=== PATIENT | male | born 1970 | race Caucasian/White ===

== ENCOUNTER 2016-11-06 14:09 | Inpatient (IN) | payer SELFPAY ==
[~2016-11-06] VITALS: Ht 180.3 cm; Wt 76.8 kg
--- NOTE | ~2016-11-06 | DS ---
ADMIT: 11/06/2016 RM/LOC: 526 [facility] MR#: [id number] [facility]#: [id number] [id number] [place], [place] [address] CANDY TORREZ [address] [place] [address] Discharge Summary SEX: M AGE: 46 : 1970 ADMISSION DATE: 11/06/2016 DISCHARGE DATE: 11/11/2016 SERVICE: Neurosurgery. REASON FOR ADMISSION: 1. Thoracic diskitis. 2. Osteomyelitis. 3. Paraspinous muscular abscess. CONSULTS: 1. John Mcarthur MD, with Internal Medicine. 2. Shanelle Carter MD, with Infectious Disease. PROCEDURES: Image guided T11 and T12 disc and bone biopsy. HOSPITAL COURSE: Mr. Torrez is a very pleasant gentleman whom was out looking at houses, slipped on some carpet and twisted his back and fell down the steps. He then had severe pain in his back. He presented to the emergency room. An x-ray was obtained, which revealed a possible compression fracture of T11, a CT scan of his thoracic spine was then ordered, which revealed a possible diskitis. An MRI was then obtained which revealed diskitis, osteomyelitis at the T11-T12 level with associated abscess formation within the disc space at T11-T12 with paraspinal soft tissue extension of the abscess. The sepsis bundle was initiated. He was admitted to the Med/Surg floor for monitoring and care. Dr. Mcarthur with Internal Medicine was consulted for co-management of his comorbidities. Dr. Carter with Infectious Disease was consulted for the osteomyelitis and diskitis. Hospital day #2, he was awake, his vital signs were stable. He was having significant pain in his back. He was moving all extremities x4 with 5/5 strength. He worked with Physical Therapy and Occupational Therapy and tolerated it very well. Infectious Disease checked his urine, which was within normal limits, an HIV, hep C antibody and hep B surface antigen which were all negative. He was continued on current antibiotics. He was taken to the Interventional Radiology, and at T11-T12 bone and disc biopsy was performed. He tolerated the procedure very well. Hospital day #3, he continued to have severe back pain. He denied numbness, tingling, or weakness in his lower limbs. His blood cultures were growing Staph epidermidis in 1 of 2 bottles. He continued on the morphine FURNITURE REMOVALIST'S ASSISTANT for pain control. The Gram stain of the bone and the tissue from the biopsy both came back no bacteria. The culture of the bone came back negative. The culture of the tissue came back growing Staphylococcus epidermidis. Hospital day #4, his morphine FURNITURE REMOVALIST'S ASSISTANT was DC'd, and he was started on oral Valium and Percocet. He was awake and alert and afebrile. He continued with no numbness or weakness to his lower extremities. He continued on vancomycin. He continued to work with Physical Therapy and tolerated this well. Hospital day #5, he was sitting up in the chair, he was complaining of severe back pain. His pain medication was adjusted. His vancomycin was changed the oxacillin. Hospital day #6, a PICC line was placed. He was awake and alert, he was moving all extremities x4 with 5/5 ADMIT: 11/06/2016 RM/LOC: 526 [facility] MR#: [id number] [address] [place] [address] [facility] [place] [address] Discharge Summary SEX: M AGE: 46 : 1970 strength. He continued to have back pain, but was requesting discharge home. Infectious Disease felt he was safe for discharge with home IV antibiotics with some Home Health. DISCHARGE CONDITION: Good. DISCHARGE MEDICATIONS: 1. Oxacillin 2 g IV q.4 hours. 2. Levothyroxine 100 mcg daily. 3. Adderall 20 mg daily. 4. Gabapentin 800 mg t.i.d. 5. Pantoprazole 40 mg daily. 6. Farxiga 10 mg daily. 7. Simvastatin 40 mg q. p.m. 8. Glyburide 5 mg daily. 9. Metformin 500 mg b.i.d. 10.Colace 100 mg p.o. b.i.d. 11.Oxy IR 15 mg 1 p.o. q.3 hours p.r.n. pain. 12.Valium 10 mg 1 p.o. q.8 hours p.r.n. muscle spasm/pain. DISCHARGE INSTRUCTIONS: (Per Dr. Garrison): He can have an ADA 2000 calorie diet. He should be up and moving as much as possible. He should utilize fall precautions. He should have an MRI of his thoracic spine with and without fernando in six weeks. He is to continue his IV antibiotics. He will have Home Health to assist with this. He will call with any questions or concerns including neurological worsening, signs or symptoms of infection, or any other issues. FOLLOWUP: He will follow up with Sushma in clinic in 2 weeks. He will follow up with Dr. Carter in 4-6 weeks. He will follow up with Dr. Garrison in clinic in 6 weeks. DISPOSITION: He was discharged home. Total [id number] time for the discharge planning and care coordination was 30 minutes. Sushma Pedro APRN / Farrukh Garrison MD / gaurav JOB #: [id number] CC: Farrukh Garrison MD, Attending Physician Farrukh Garrison MD, Family Physician
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
[2016-11-12] MEDS ORDERED: [UNRECOGNIZED DRUG - OTHER] PO (14:31)
[2016-11-12] MEDS ORDERED: PROTONIX40 MG PO (14:33)
[2016-11-12] MEDS ORDERED: LEVOTHYROXINE100 MCG PO (14:33)
[2016-11-12] MEDS ORDERED: NEURONTIN800 MG PO (14:33)
[2016-11-12] MEDS ORDERED: ZOCOR DPS40 MG PO (14:34)
[2016-11-12] MEDS ORDERED: GLUCOPHAGE-DPS500 MG PO (14:34)
[2016-11-12] MEDS ORDERED: FARXIGA10 MG PO (14:34)
[2016-11-12] MEDS ORDERED: OXY IR DPS5 MG PO (14:37)
[2016-11-12] MEDS ORDERED: PROSTAPHLIN DPS2 GM IV (14:37)
[2016-11-12] MEDS ORDERED: VALIUM-DPS10 MG PO (14:38)
[2016-11-12] MEDS ORDERED: COLACE-DPS100 MG PO (14:38)
--- NOTE | 2016-11-13 15:21 | HP ---
ADMIT: 11/06/2016 RM/LOC: 526 [facility] MR#: [id number] 2620 [facility] [address] [place], [place] [address] CANDY TORREZ [address] [place] [address] Pre-OP History and Physical SEX: M AGE: 46 : 1970 Corrected: 11/07/2016 1425 brody 11/13/2016 1046 brody DATE OF SERVICE: REASON FOR ADMIT: Thoracic diskitis, osteomyelitis, and abscess, -12. HISTORY OF PRESENT ILLNESS: Mr. Torrez is a 46-year-old gentleman. He did not really have much in the way of back pain until he had a trip and a fall earlier today. He does not complain of bowel or bladder incontinence or weakness in his legs. He just has severe excruciating, incapacitating pain in his back. PAST MEDICAL HISTORY: He is a bit uncertain. I got most of that via speaker phone conversation with his soon to be ex- he reports. He has hypothyroidism, diabetes mellitus, hyperlipidemia, and GERD. ALLERGIES: NONE KNOWN. MEDICATIONS: 1. Farxiga. 2. Glyburide. 3. Simvastatin. 4. Pantoprazole. 5. Synthroid. He is not on any anticoagulants that he is aware of or what his estranged is aware of. SOCIAL HISTORY: He chews tobacco and drinks. He does not utilize drugs of abuse. FAMILY HISTORY: No history of neurosurgical disease. REVIEW OF SYSTEMS: Complete review of systems was obtained and pertinent positives annotated in the history of present illness. PHYSICAL EXAMINATION: VITAL SIGNS: 129/66, 120 beats, 14 respirations, 96.9 degrees. Laboratory analysis pertinently reveals a sedimentation rate of 75 and a white count of 10.5. GENERAL: He is a healthy appearing gentleman, who appears to be in exquisite pain. He is tremulous and not really diaphoretic. HEENT: He has an atraumatic head. No scleral icterus. Clear oropharynx with the exception of the pouch of chewing tobacco. Also some scattered around throughout his teeth. NECK: Supple. Nontender. MUSCULOSKELETAL: He has full range of motion with his extremities. He has extreme pain in the thoracolumbar junction with any extensive movement. 2+ radial pulses. LUNGS: Normal respiratory excursion. ADMIT: 11/06/2016 RM/LOC: 526 [facility] MR#: [id number] [address] [address] [facility] [address] Pre-OP History and Physical SEX: M AGE: 46 : 1970 ABDOMEN: Nontender abdomen. NEUROLOGICAL EXAMINATION: MENTAL STATUS: He is awake, alert, a bit agitated because of his pain. He has no aphasia. His affect is appropriate. Thought content is normal. CRANIAL NERVES: Cranial nerves II through XII are individually tested and found to be intact without deficit. MOTOR EXAM: Motor exam reveals 5/5 strength in bilateral upper and lower extremities at the shoulder abductors, elbow flexors, elbow extensors, wrist flexors, wrist extensors, interosseous muscles, personnel and payroll technician strength, hip flexors, hip abductors, hip adductors, knee flexors, knee extensors, ankle dorsiflexors, ankle plantar flexors, and extensors of the hallucis bilaterally. Sensation intact to light touch in upper and lower extremities. Deep tendon reflexes 3/4 globally, although he is very tremulous and irritated. He has no Babinski or crossing of the adductors. No Iva or brachioradial inversion. CEREBELLAR: Not tested. GAIT: Not tested. ASSESSMENT AND PLAN: Mr. Torrez is a very pleasant gentleman with thoracic 11-12 diskitis, osteomyelitis, and paraspinous muscular abscess. I have put a call in for Infectious Disease. We will start him on some antibiotics down here and then request a biopsy in the morning. Lactate and sepsis bundle has been initiated. Farrukh Garrison MD/ caleb JOB #: [id number] CC: Farrukh Garrison, Attending Physician Farrukh Garrison, Family Physician Corrected: 11/07/2016 1425 brody 11/13/2016 1046 brody
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
--- NOTE | 2016-11-23 08:19 | ER ---
ADMIT: 11/06/2016 RM/LOC: 526 [facility] MR#: [id number] [address] [facility] [address] [place], [place] [address] CANDY TORREZ [address] [place] [address] Emergency Room Report SEX: M AGE: 46 : 1970 DATE: 11/06/2016 ADDENDUM: CHIEF COMPLAINT: Back pain. HISTORY OF PRESENT ILLNESS: This is a 46-year-old male, who was actually visiting from [place]. He was looking at a house and he fell down the stairs. He said he fell down about 8 steps, but he does not think he made contact with the steps as more of a twisting action. He says he has excruciating pain in his back. It is hard for him to walk because of pain. COURSE IN THE EMERGENCY ROOM: Initially, an x-ray was done of his L-spine. With L-spine view, I could visualize T11, it appeared to be a compression fracture. At that time, I ordered a CT of his T-spine, which looked like diskitis versus carcinoma in that area over-read by Dr. Tinoco. At that time, ordered an MRI, and it appears to be more of a diskitis. Labs were ordered then including the sepsis protocol. Overall findings, his white count was elevated slightly at 10.5, hemoglobin 12.6, and platelets 268. Lactic acid is 1.9. Blood cultures x2 have been drawn. Procalcitonin is less than 0.05. PT and INR are normal. CMP is normal except for chloride of 111, glucose 177, albumin low at 3.0. His GFR low at 67. CK elevated at 566. His CRP elevated at 310. His MB, relative index, and troponin are normal. Sedimentation rate is elevated at 75. His EKG showed sinus rhythm at a rate of 85, over-read by Dr. Bryant. Dr. Garrison was contacted. He came into the ER to see the patient and has admitted. Dr. Mcarthur is consulting. Dr. Garrison had spoke with him. CLINICAL IMPRESSION: Osteomyelitis of T11 to T12. CARLITA Gomez / Dudley Redmond MD / modl JOB #: [id number] CC: Farrukh Garrison MD, Attending Physician Farrukh Garrison MD, Family Physician
[2016-12-04] MEDS ORDERED: NEURONTIN800 MG PO (17:15)
[2016-12-04] MEDS ORDERED: SYNTHROID DPS0.1 MG PO (17:16)
[2016-12-04] MEDS ORDERED: OXYCONTIN15 MG PO (17:16)
[2016-12-04] MEDS ORDERED: ZOCOR DPS40 MG PO (17:16)
[2016-12-04] MEDS ORDERED: FARXIGA10 MG PO (17:16)
[2016-12-04] MEDS ORDERED: FENOFIBRATE160 MG PO (17:17)
[2016-12-04] MEDS ORDERED: MICRONASE DPS5 MG PO (17:17)
[2016-12-04] MEDS ORDERED: OXACILLIN SODIUM2 GM IV (17:18)
== END 2016-11-11 18:00 | disposition home health service (06) | DRG 478 ==
LOC: ER 14:09 → 5MS 19:00
PROVIDERS: ADMIT Neurological Surgery
PROC: 0RB93ZX Excision of Thoracic Vertebral Disc, Percutaneous Approach, Diagnostic (ICD-10-PCS; principal; 2016-11-07)
PROC: 0PB43ZX Excision of Thoracic Vertebra, Percutaneous Approach, Diagnostic (ICD-10-PCS; principal; 2016-11-07)
PROC: 02HV33Z Insertion of Infusion Device into Superior Vena Cava, Percutaneous Approach (ICD-10-PCS; 2016-11-11)
DX: M46.24 Osteomyelitis of vertebra, thoracic region (principal); M60.08 Infective myositis, other site; R78.81 Bacteremia; B95.7 Other staphylococcus as the cause of diseases classified elsewhere; E03.9 Hypothyroidism, unspecified; E11.9 Type 2 diabetes mellitus without complications; E78.5 Hyperlipidemia, unspecified; M46.44 Discitis, unspecified, thoracic region; F17.220 Nicotine dependence, chewing tobacco, uncomplicated; F17.210 Nicotine dependence, cigarettes, uncomplicated; K21.9 Gastro-esophageal reflux disease without esophagitis; Z79.84 Long term (current) use of oral hypoglycemic drugs

== ENCOUNTER 2016-11-22 10:29 | Emergency (ER) | payer SELFPAY ==
--- NOTE | ~2016-11-22 | ER ---
ADMIT: 11/22/2016 RM/LOC: ER [facility] MR#: [id number] 2620 [facility] [address] [place], [place] [address] CANDY TORREZ [address] [place] [address] Emergency Room Report SEX: M AGE: 46 : 1970 DATE: 11/22/2016 The patient is a 46-year-old with chronic issues with his back. He has complained now of right upper arm PICC line pain when he was infusing his oxacillin antibiotic. He came to the emergency room because he thinks he may have his PICC line infected. He was infusing up to recently. He had a biopsy on his back due to acute pain that he had and Dr. Carter put him on oxacillin. He is a smoker. PHYSICAL EXAMINATION: GENERAL: He looks very sedated but stated he did not take his medications today. VITAL SIGNS: His blood pressure 145/80 with a heart rate of 101, respirations 16, temp is 98.9, and O2 sats 93%. HEENT: Pinpoint pupils. He is wearing a neck brace. CARDIAC: He is tachycardic. On physical examination, these are the findings. LABORATORY DATA: Done as a kind of screen SIRS. We did do a sepsis protocol as his lactic acid went 2.1. Hemoglobin 11.7 with a normal white count of 5.7, hematocrit is 35.6. His chemistry 3.1, glucose 287, creatinine is 1.5. Lactic 2.1. CK 160, MB 1.4, and troponin 0. Glucose in the urine 1000. Albumin is 2.9 and GFR 56. PICC line, no complications. X-ray done to check for placement. CLINICAL IMPRESSION: Hyperglycemia, pain control, infection in thoracic spine with antibiotic therapy, and PICC line problems. I contacted Dr. Mcarthur. No admission at this time. He will be treated on outpatient basis. He is advised to start a new antibiotic bag as probably the one that he was using had some issues that caused burning, but there is no redness in the PICC line site. He is afebrile. I will write for pain medication and he has an appointment to see Dr. Mcarthur on December 04 at 1 o'clock as a followup from city call and to establish care. CARLITA Cabrera / Dudley Redmond MD / caleb JOB #: [id number] CC: Dudley Redmond MD, Attending Physician
[~2016-11-22 10:29] MED LIST: COLACE-DPS100 MG PO; FARXIGA10 MG PO; GLUCOPHAGE-DPS500 MG PO; LEVOTHYROXINE100 MCG PO; NEURONTIN800 MG PO; OXY IR DPS5 MG PO; PROSTAPHLIN DPS2 GM IV; PROTONIX40 MG PO; VALIUM-DPS10 MG PO; ZOCOR DPS40 MG PO; [UNRECOGNIZED DRUG - OTHER] PO
--- NOTE | 2016-11-30 17:54 | ER ---
ADMIT: 11/22/2016 RM/LOC: ER [facility] MR#: [id number] 2620 [facility] [address] [place], [place] [address] CANDY TORREZ [address] [place] [address] Emergency Room Report SEX: M AGE: 46 : 1970 DATE: 11/22/2016 ADDENDUM: OCCURRENCE: This is a second addendum. At 1646 hours, I received phone call from [facility] stating that Mr. Torrez has received a prescription of count of 43 oxycodone yesterday from Sushma Pedro, neurologist office, and at this point, I have given him 20, so he could get medication until he was able to see Dr. Mcarthur on Friday. I asked pharmacist not to fill the prescription and take it from him, that I was not aware that he had received that many oxycodone since the day before. As I hung up the phone, the patient called to try to remind me that he had told me about the script from the neurologist's office and I told him I had tried to help him out by giving him enough medication to last him until he could see his doctor, but I do not like to be lied to and by not disclosing and keeping quiet, he did lie. So this note is an occurrence for Mr. Candy Torrez. He ended up with no more Mims. I believe he has a count of 28 at home and he will have to make it last until he sees Dr. Mcarthur on December 04. CARLITA Cabrera / Dudley Redmond MD / adenl JOB #: [id number] CC: Dudley Redmond MD, Attending Physician
[2016-12-04] MEDS ORDERED: NEURONTIN800 MG PO (17:15)
[2016-12-04] MEDS ORDERED: FARXIGA10 MG PO (17:16)
[2016-12-04] MEDS ORDERED: SYNTHROID DPS0.1 MG PO (17:16)
[2016-12-04] MEDS ORDERED: OXYCONTIN15 MG PO (17:16)
[2016-12-04] MEDS ORDERED: ZOCOR DPS40 MG PO (17:16)
[2016-12-04] MEDS ORDERED: FENOFIBRATE160 MG PO (17:17)
[2016-12-04] MEDS ORDERED: MICRONASE DPS5 MG PO (17:17)
[2016-12-04] MEDS ORDERED: OXACILLIN SODIUM2 GM IV (17:18)
== END 2016-11-22 16:10 | disposition home or self-care (01) ==
LOC: ER 10:29
DX: T82.848A Pain due to vascular prosthetic devices, implants and grafts, initial encounter (principal); M79.621 Pain in right upper arm; E11.65 Type 2 diabetes mellitus with hyperglycemia; E03.9 Hypothyroidism, unspecified; E78.5 Hyperlipidemia, unspecified; F17.210 Nicotine dependence, cigarettes, uncomplicated; Z90.89 Acquired absence of other organs; Z79.899 Other long term (current) drug therapy

== ENCOUNTER 2016-11-22 21:42 | Emergency (ER) | payer SELFPAY ==
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
[2016-12-04] MEDS ORDERED: NEURONTIN800 MG PO (17:15)
[2016-12-04] MEDS ORDERED: OXYCONTIN15 MG PO (17:16)
[2016-12-04] MEDS ORDERED: FARXIGA10 MG PO (17:16)
[2016-12-04] MEDS ORDERED: SYNTHROID DPS0.1 MG PO (17:16)
[2016-12-04] MEDS ORDERED: ZOCOR DPS40 MG PO (17:16)
[2016-12-04] MEDS ORDERED: MICRONASE DPS5 MG PO (17:17)
[2016-12-04] MEDS ORDERED: FENOFIBRATE160 MG PO (17:17)
[2016-12-04] MEDS ORDERED: OXACILLIN SODIUM2 GM IV (17:18)
== END 2016-11-23 00:55 | disposition home or self-care (01) ==
LOC: ER 21:42
DX: T82.898A Other specified complication of vascular prosthetic devices, implants and grafts, initial encounter (principal); G89.29 Other chronic pain; F17.210 Nicotine dependence, cigarettes, uncomplicated; E11.9 Type 2 diabetes mellitus without complications; Z90.89 Acquired absence of other organs; Z79.899 Other long term (current) drug therapy

== ENCOUNTER 2016-11-25 20:21 | Emergency (ER) | payer SELFPAY ==
--- NOTE | 2016-11-26 05:24 | ER ---
ADMIT: 11/25/2016 RM/LOC: ER [facility] MR#: [id number] 26[address] [facility] [id number] [place], [place] [address] CANDY TORREZ [address] [place] [address] Emergency Room Report SEX: M AGE: 46 : 1970 DATE: 11/25/2016 The patient is a 46-year-old male with complex history of spontaneous T11-12 osteomyelitis discitis with abscess status post IR biopsy and chronic oxacillin infusion till December 19. States that his last OxyContin IR was at 6 this morning. The patient received Toradol, Dilaudid, and Reglan here with instructions to increase his OxyContin every 6 hours as needed. Follow up Farrukh Garrison as scheduled this week. Jhonny Leiva MD/ caleb JOB #: [id number] CC: Jhonny Leiva MD, Attending Physician Farrukh Garrison MD
[2016-12-04] MEDS ORDERED: NEURONTIN800 MG PO (17:15)
[2016-12-04] MEDS ORDERED: OXYCONTIN15 MG PO (17:16)
[2016-12-04] MEDS ORDERED: ZOCOR DPS40 MG PO (17:16)
[2016-12-04] MEDS ORDERED: SYNTHROID DPS0.1 MG PO (17:16)
[2016-12-04] MEDS ORDERED: FARXIGA10 MG PO (17:16)
[2016-12-04] MEDS ORDERED: FENOFIBRATE160 MG PO (17:17)
[2016-12-04] MEDS ORDERED: MICRONASE DPS5 MG PO (17:17)
[2016-12-04] MEDS ORDERED: OXACILLIN SODIUM2 GM IV (17:18)
== END 2016-11-25 21:55 | disposition home or self-care (01) ==
LOC: ER 20:21
DX: M46.24 Osteomyelitis of vertebra, thoracic region (principal); M46.44 Discitis, unspecified, thoracic region; E11.69 Type 2 diabetes mellitus with other specified complication; F17.210 Nicotine dependence, cigarettes, uncomplicated; E78.5 Hyperlipidemia, unspecified; E03.9 Hypothyroidism, unspecified; Z79.84 Long term (current) use of oral hypoglycemic drugs; Z79.899 Other long term (current) drug therapy

== ENCOUNTER 2016-11-29 15:35 | Emergency (ER) | payer SELFPAY ==
--- NOTE | 2016-12-03 19:20 | ER ---
ADMIT: 11/29/2016 RM/LOC: ER [facility] MR#: [id number] [id number] [place], [place] [address] CANDY TORREZ [address] [place] [address] Emergency Room Report SEX: M AGE: 46 : 1970 DATE: 11/29/2016 ADDENDUM: CHIEF COMPLAINT: PICC line. HPI: This is a 46-year-old male, who has a PICC line for 24-hour antibiotics. The PICC line was slightly coming out, so came here to be evaluated. Chest x- ray was done, the PICC line is in place per Dr. Bryant over reading. I am sending him home having him follow up with Dr. Carter on Friday for PICC line replacement. CLINICAL IMPRESSION: Chronic spine infection with IV antibiotics. CARLITA Gomez / Gt Bryant MD / caleb JOB #: [id number] CC: Da Murphy MD, Attending Physician FAMILY PHYSICIAN, Family Physician
[2016-12-04] MEDS ORDERED: NEURONTIN800 MG PO (17:15)
[2016-12-04] MEDS ORDERED: FARXIGA10 MG PO (17:16)
[2016-12-04] MEDS ORDERED: SYNTHROID DPS0.1 MG PO (17:16)
[2016-12-04] MEDS ORDERED: OXYCONTIN15 MG PO (17:16)
[2016-12-04] MEDS ORDERED: ZOCOR DPS40 MG PO (17:16)
[2016-12-04] MEDS ORDERED: FENOFIBRATE160 MG PO (17:17)
[2016-12-04] MEDS ORDERED: MICRONASE DPS5 MG PO (17:17)
[2016-12-04] MEDS ORDERED: OXACILLIN SODIUM2 GM IV (17:18)
== END 2016-11-29 19:52 | disposition home or self-care (01) ==
LOC: ER 15:35
DX: M46.30 Infection of intervertebral disc (pyogenic), site unspecified (principal)

== ENCOUNTER 2016-12-01 14:34 | Inpatient (IN) | payer SELFPAY ==
[~2016-12-01] VITALS: Ht 180.3 cm; Wt 83.7 kg
--- NOTE | ~2016-12-01 | ECH ---
Transthoracic Echocardiography Report (TTE) Demographics Patient Name CANDY TORREZ Date of Study 12/02/2016 CRYSTAL Patient Number [id number] Visit Number [id number] Date of 1970 Room Number 401 Gender Male Number Age 46 year(s) Referring Ritchie Marie Spray Painter Helper [facility] Physician Physician Interpreting Elba Davila Track Rider Physician MD Supervising Ordering King Sarthak Zepeda MD, MD/MLP Physician Nurse Stress Chiropractic Practice Manager Conclusions Summary Technically adequate exam. Mild septal left ventricular hypertrophy. Mild mitral regurgitation by color Doppler. Mild tricuspid regurgitation by color Doppler. Trivial pulmonic valve regurgitation by color Doppler. Procedure Type of Study TTE procedure:Echo Complete SF. Procedure Date Date: 12/02/2016 Start: 11:11 AM Technical Quality: Adequate visualization Indications:Bradycardia. Appropriate Use Criteria: 9 Height: 71 inches Weight: 183 pounds BSA: 2.03 m Rhythm: Within normal limits HR: 43 bpm BP: 125/69 mmHg M-Mode/2D Measurements LV Diastolic Dimension: 4.56 cm LV Systolic Dimension: 2.15 cm LV Septum Diastolic: 1.2 cm LV PW Diastolic: 1.02 cm AO Root Dimension: 2.24 cm Cardiac Output: 2.79 l/min LA Dimension: 3.87 cm Cardiac Index: 1.37 l/min*m RV Diastolic Dimension: 3.27 cm LA volume index: 30 ml/m LVOT: 1.87 cm LVOT VTI: 23.63 cm RV Base: 3.77 cm LV Stroke volume: 64.87 ml RV Mid: 2.87 cm LV Stroke volume index: 31.96 ml/m RV Length: 6.55 cm TAPSE: 3.2 cm TDI-S': 13 cm/s Doppler Measurements AV Peak Velocity: 1.14 m/s MV Peak E-Wave: 0.91 m/s AV Peak Gradient: 5.2 mmHg MV Peak A-Wave: 0.45 m/s AV Mean Gradient: 3 mmHg MV E/A Ratio: 2.01 LVOT Peak Velocity: 0.9 m/s MV P1/2t: 57.1 msec AV Area (Continuity):2.35 cm MV Deceleration Time: 203.1 msec TR Velocity:2 m/s MV Area (PHT): 3.85 cm TR Gradient:16.07 mmHg PV Peak Velocity: 0.78 m/s Estimated RAP:3 mmHg PV Peak Gradient: 2.4 mmHg Estimated RVSP: 19 mmHg Estimated PASP: 19.07 mmHg E' Septal Velocity: 0.16 m/s E' Lateral Velocity: 0.13 m/s RA Area: 15.81 cm Findings Left Ventricle The left ventricle is normal in size . Mild septal left ventricular hypertrophy. Diastolic assessment reveals normal relaxation. Right Ventricle Normal right ventricle structure and function. Left Atrium Normal left atrial size. Right Atrium Normal right atrial size. Mitral Valve Normal mitral valve structure and function. Mild mitral regurgitation by color Doppler. Aortic Valve Normal aortic valve structure and function. Tricuspid Valve Normal tricuspid valve structure and function. Mild tricuspid regurgitation by color Doppler. Pulmonic Valve Normal pulmonic valve structure and function. Trivial pulmonic valve regurgitation by color Doppler. Pericardial Effusion No evidence of pericardial effusion. Miscellaneous Visualized portions of the aortic root and ascending aorta appear normal in size. Pleural Effusion No evidence of pleural effusion. Contractility Score LV regional wall motion:(0-Non visualized 1-Normal 2-Hypokinesis 3-Akinesis 4-Dyskinesis 5-Aneurysm) Signature
[2016-12-04] MEDS ORDERED: NEURONTIN800 MG PO (17:15)
[2016-12-04] MEDS ORDERED: ZOCOR DPS40 MG PO (17:16)
[2016-12-04] MEDS ORDERED: OXYCONTIN15 MG PO (17:16)
[2016-12-04] MEDS ORDERED: FARXIGA10 MG PO (17:16)
[2016-12-04] MEDS ORDERED: SYNTHROID DPS0.1 MG PO (17:16)
[2016-12-04] MEDS ORDERED: FENOFIBRATE160 MG PO (17:17)
[2016-12-04] MEDS ORDERED: MICRONASE DPS5 MG PO (17:17)
[2016-12-04] MEDS ORDERED: OXACILLIN SODIUM2 GM IV (17:18)
--- NOTE | 2016-12-11 08:24 | HP ---
ADMIT: 12/01/2016 RM/LOC: 401 [facility] MR#: [id number] 26[address] [facility] [address] [place], [place] [address] CANDY TORREZ [address] [place] [address] History and Physical SEX: M AGE: 46 : 1970 DATE OF SERVICE: CHIEF COMPLAINT: Back pain. HISTORY OF PRESENT ILLNESS: Mr. 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 He has been following with Neurosurgery, Dr. Farrukh Garrison as well as Infectious Disease, Dr. Carter regarding this. Because of this infection, he has had persistent back pain. He has presented numerous times to the Emergency Department both here in [place] and apparently also in the neighboring community of [place], [place] requesting narcotic pain medications. He presented again this afternoon to the Emergency Department with increased back pain and during evaluation, he was found to have profound bradycardia with heart rates in the 40s. He was given a dose of atropine and his pulse did improve into the 70s. The patient denies any symptoms. No dizziness. No chest pain. No syncope. No shortness of breath. He also denies any history of prior cardiac disease. He does have hypothyroidism and it is unclear how compliant he is with his thyroid medication. He also is diabetic and again it is unclear if he has been compliant with his medications. When asked if he has a primary physician, he says he saw Dr. Ríos but that they "did not get along." He is not otherwise established primary care. PAST MEDICAL HISTORY: 1. Chronic back pain secondary to thoracic diskitis, osteomyelitis, and abscess, on chronic IV antibiotics. 2. Hypothyroidism. 3. Hyperlipidemia. 4. Diabetes mellitus type 2. 5. Apparent drug seeking behavior. MEDICATIONS: The patient is unable to list the current medications. Nursing staff did obtain a list from an old chart from earlier this year, which included the following medications: 1. Gabapentin 600 mg. 2. Oxycodone 10 mg. 3. Levothyroxine, unknown dose. 4. Diazepam 5 mg. 5. Simvastatin 40 mg. 6. Fenofibrate 150 mg. 7. Glimepiride, unknown dose. 8. Valtrex, unknown dose. 9. Prednisone 20 mg at that time. 10.Cyclobenzaprine 10 mg. 11.Pantoprazole, unknown dose. 12.Farxiga 10 mg. 13.Adderall, unknown dose. ALLERGIES: NO KNOWN MEDICAL ALLERGIES. ADMIT: 12/01/2016 RM/LOC: 401 [facility] MR#: [id number] [address] [address] [place] [address] History and Physical SEX: M AGE: 46 : 1970 FAMILY HISTORY: Noncontributory. SOCIAL HISTORY: The patient currently lives independently in [place] and is unemployed. 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 Originally, he is from [place]. He had been living in [place] for about the past one year. He smokes "a little." He denies need for nicotine replacement therapy. He denies alcohol use. He denies illicit drug use. REVIEW OF SYSTEMS: As per HPI. Others reviewed and negative. PHYSICAL EXAMINATION: VITAL SIGNS: Temperature 97.4, heart rate 43, respiratory rate 16, blood pressure 129/63, and oxygen saturation 97%. GENERAL: The patient is lying on the bed with his back to me and the sheath pulled up over his face. HEENT: From what I can tell, is unremarkable. HEART: Bradycardic, but regular. No murmurs. LUNGS: Clear to auscultation bilaterally. No crackles or wheezes. ABDOMEN: Soft, nontender, and nondistended. EXTREMITIES: Warm and dry. No edema. NEUROLOGIC: Cranial nerves were grossly intact. At this time, I did not appreciate any focal neurologic deficits, but assessment was difficult secondary to the patient's cooperation. LABORATORY DATA: Please see electronic record for full details, but of note, his blood sugar was elevated at 322. Creatinine was normal at 1.1. Troponin was less than 0.015. White blood cell count 6.6. TSH within normal limits at 1.13. IMAGING: Chest x-ray from 2 days prior showed PICC line in stable position. EKG shows sinus bradycardia with a rate of 42 at that time. ASSESSMENT AND PLAN: 1. Sinus bradycardia. He is currently asymptomatic. With no previous cardiac history, suspect this is due to some medication or potentially would like to rule out underlying cardiac disease. Cardiology has been consulted and appreciate recommendations they may have. 2. Type 2 diabetes mellitus. This is uncontrolled given hyperglycemia at this time. We will obtain an A1c. We will have sliding scale insulin. We will plan to restart home medications once doses are verified. 3. History of osteomyelitis of the thoracic spine as well as diskitis of the thoracic spine. We will continue with his plan for IV antibiotics by his Infectious Disease and Neurosurgical specialist. We will consult them ADMIT: 12/01/2016 RM/LOC: 401 [facility] MR#: [id number] [address] [place] [id number] [facility] [address] [place] [address] History and Physical SEX: M AGE: 46 : 1970 should his admission be prolonged. 4. Chronic pain with narcotic dependency and suspicion for narcotic abuse. We will continue with his home medications. At this point, I see no need for IV pain medications or increased regimen. 5. Hypothyroidism. His TSH is currently at goal. We will verify his home medication. 6. Noncompliance. 7. Tobacco abuse. Cessation recommended. 8. Hyperlipidemia. We will continue his home statin. DISPOSITION: Once Cardiology has evaluated the patient, his bradycardia is stable. We will plan for discharge. Chiquis Dugan MD/ caleb JOB #: [id number] CC: Chiquis Dugan, Attending Physician Chiquis Dugan, Family Physician
--- NOTE | 2016-12-15 15:51 | ER ---
ADMIT: 12/01/2016 RM/LOC: 401 [facility] MR#: [id number] 26[address] [facility] [address] [place], [place] [address] CANDY TORREZ [address] [place] [address] Emergency Room Report SEX: M AGE: 46 : 1970 DATE: 12/01/2016 HISTORY OF PRESENT ILLNESS: A 46-year-old who comes to the emergency department with complaints of chronic back pain. He had been diagnosed several weeks ago with osteomyelitis and diskitis. He sees Dr. Farrukh Garrison's for his spine problems as well as Dr. Carter. He says "he was told to come here for strong pain medicine per Dr. Garrison." It was noted while he was here that he was profoundly bradycardic with rates down into the upper 30s. However, his blood pressure was never an issue. Because of his profound bradycardia, electrolytes were obtained results, which were unremarkable. Cardiac markers were likewise unremarkable. An EKG showed a sinus bradycardia and then throughout his stay here in the emergency department, he said he was in [facility] last night where they attempt him to admit him for bradycardia, however, he became combative with the staff and was escorted out by the police. PHYSICAL EXAMINATION: GENERAL: A 46-year-old gentleman, in no acute distress. He does appear to be under the influence of narcotics and he was mildly obtunded and slow to answer. HEENT: Normocephalic. LUNGS: Clear to auscultation. CARDIOVASCULAR: No murmur. Bradycardia is noted. ABDOMEN: Soft. EXTREMITIES: Unremarkable. EMERGENCY DEPARTMENT COURSE: The patient was subsequently admitted for workup of his bradycardia. He was given 0.5 mg of atropine in the emergency department, which brought his rate from 39 to the mid 70s for pulse. Femi Wang MD/ caleb JOB #: [id number] CC: Chiquis Dugan MD, Attending Physician Chiquis Dugan MD, Family Physician
--- NOTE | 2016-12-18 09:41 | CO ---
ADMIT: 12/01/2016 RM/LOC: 401 [facility] MR#: [id number] [address] [place], [place] [address] CANDY TORREZ [address] [place] [address] Consultation SEX: M AGE: 46 : 1970 DATE OF CONSULTATION: 12/02/2016 ATTENDING PHYSICIAN: Chiquis Dugan CONSULTING PHYSICIAN: Shanelle Carter MD REASON FOR CONSULTATION: Antibiotic management. Thank you, Dr. Dugan, for the consult and involving me in this patient's care. HISTORY OF PRESENT ILLNESS: Mr. Torrez is a 46-year-old man, who was admitted in the hospital in October with complaint of back pain and found to have T10-T11 diskitis with Staphylococcus epidermidis infection. He also had bacteremia at that time. He was started on oxacillin 2 g every 4 hours and discharged on continuous infusion. He has finished more than three weeks of IV antibiotics through right arm PICC line. He has had multiple admissions to the ER since last 1 week for back pain and during his last admission, he was noted to have his heart rate in the low 40s. He is otherwise asymptomatic. He is currently being evaluated by Cardiology. He has uncontrolled diabetes mellitus. At this time, he continues to complain of chronic back pain. PAST MEDICAL HISTORY: 1. T10-T11 diskitis and osteomyelitis. 2. Hypothyroidism. 3. Uncontrolled diabetes mellitus. 4. Hyperlipidemia. 5. Questionable drug-seeking behavior. ALLERGIES: NO KNOWN DRUG ALLERGIES. CURRENT MEDICATIONS: 1. Neurontin. 2. Zocor. 3. Insulin sliding scale. SOCIAL HISTORY: He lives alone. Smokes cigarettes every day. Drinks alcohol occasionally, and denies any current recreational drug use. FAMILY HISTORY: No history of neurosurgical disease. REVIEW OF SYSTEMS: A 10-point review of systems negative except as mentioned in HPI. PHYSICAL EXAMINATION: VITAL SIGNS: Current temperature 96.3, heart rate 34, respirations 18, blood pressure 135/67, and 95% on room air. GENERAL: No acute distress. HEENT: Head is normocephalic and atraumatic. Extraocular movements intact. CHEST: Clear to auscultation bilaterally. ADMIT: 12/01/2016 RM/LOC: 401 [facility] MR#: [id number] 26[address] [facility] [address] [place], [place] [address] [facility] [address] [place] [address] Consultation SEX: M AGE: 46 : 1970 CARDIOVASCULAR: S1 and S2 heard. Regular rate and rhythm, bradycardia. ABDOMEN: Soft and nontender. Active bowel sounds. EXTREMITIES: No peripheral edema. PSYCH: Normal affect. Memory intact. SKIN: No rash noted on exposed skin. LYMPH: No palpable anterior/posterior cervical or supraclavicular lymphadenopathy. DATA REVIEW: CBC today shows white count of 6.2, hemoglobin 11.8, and platelets of 314. BMP shows sodium of 146, potassium 3.3, creatinine of 0.8. Hemoglobin A1c is 9. ASSESSMENT AND PLAN: 1. T10-T11 diskitis secondary to Staphylococcus epidermidis infection. Continue IV oxacillin 2 g every 4 hours until 12/19/2016 to complete at least six weeks of IV antibiotics. He will again probably need oral antibiotics after that. 2. Uncontrolled diabetes mellitus. 3. Bradycardia. I will repeat blood cultures at this time and if negative, then okay to put pacemaker if needed. Thank you for the consult. I will continue to follow the patient. Shanelle Carter MD/ caleb JOB #: [id number] CC: hCiquis Dugan, Attending Physician Chiquis Dugan, Family Physician
--- NOTE | 2016-12-19 08:26 | DS ---
ADMIT: 12/01/2016 RM/LOC: 401 [facility] MR#: [id number] 26[address] [facility] [address] [place], [place] [address] CANDY TORREZ [address] [place] [address] General Discharge Summary SEX: M AGE: 46 : 1970 ADMISSION DATE: 12/01/2016 DISCHARGE DATE: 12/03/2016 DISCHARGE DIAGNOSES: 1. Acute sinus bradycardia. 2. Uncontrolled type 2 diabetes mellitus. 3. History of thoracic diskitis and osteomyelitis. 4. Chronic back pain with narcotic dependency and suspicion for narcotic abuse. 5. Chronic hypothyroidism. 6. Noncompliance. 7. Tobacco abuse. 8. Mild hypokalemia, asymptomatic. CONSULTS: 1. Cardiology, Dr. Amin. 2. Infectious Disease, Dr. Carter. PROCEDURES: None. REASON FOR ADMISSION: The patient was admitted through the Emergency Department as a [facility] patient after presenting with increased back pain and found to have a significant bradycardia. Please see H and P for full details. HOSPITAL COURSE: The patient was admitted to telemetry monitoring for his severe bradycardia. In the Emergency Department, he had been given atropine which did improve his heart rates from the 40s to 70s. Cardiac enzymes were obtained and were unremarkable for a total of three sets. Cardiology was consulted at the time of admission as well. He is a known type 2 diabetic, therefore, was started on sliding scale insulin. He also has chronic back pain related to thoracic diskitis. His home pain medication regimen and antibiotics were continued. His Infectious Disease physician was consulted as she had planned outpatient followup around the time of his admission. She recommended continuing IV oxacillin and completing six weeks worth of IV antibiotics. Cardiology recommended an echocardiogram, which was performed and without obvious abnormality. Cardiology believed that his bradycardia was likely due to his pain medications. Given no symptoms and unremarkable cardiac evaluation, he was given a 48-Holter monitor and felt stable for discharge. DISCHARGE MEDICATIONS: 1. Farxiga 10 mg daily. 2. Micronase 5 mg daily. 3. Neurontin 800 mg t.i.d. 4. Synthroid 100 mcg daily. 5. TriCor 145 mg daily. 6. Zocor 40 mg daily. 7. Oxacillin 2 g IV q.4 hours to complete a total of six weeks course. ADMIT: 12/01/2016 RM/LOC: 401 [facility] MR#: [id number] 26[address] [facility] [address] [place], [place] [address] [place] [address] General Discharge Summary SEX: M AGE: 46 : 1970 8. Oxycodone IR 15 mg q.3 hours p.r.n. per home supply. No additional scripts were given. DISCHARGE INSTRUCTIONS: The patient was discharged to home in stable condition. He will follow up with home health care for his IV antibiotics. He will follow with Dr. Reyes as previously arranged on December [address] Garrison on January [address] Carter on December [address] Amin on January 21. Recommend that he establish with primary care in the community for further evaluation and treatment of his diabetes. Narcotic precautions were reviewed. We will defer to Pain Management regarding his pain control regimen. Cardiac precautions were also reviewed. He may continue with a diabetic diet and activity as tolerated. Chiquis Dugan MD/ adenl JOB #: [id number] CC: Chiquis Dugan MD, Attending Physician Chiquis Dugan MD, Family Physician
--- NOTE | 2016-12-23 15:33 | CO ---
ADMIT: 12/01/2016 RM/LOC: [facility] MR#: [id number] [address] [place], [place] [id number] BALJIT TORREZ [address] [place] [address] Consultation SEX: M AGE: 46 : 1970 DATE OF CONSULTATION: 12/02/2016 ATTENDING PHYSICIAN: Chiquis Dugan CONSULTING PHYSICIAN: Sarthak Amin MD Reason for consult: Sinus Bradycardia. HISTORY OF PRESENT ILLNESS: Baljit came into the ER, presenting with chronic low back pain. He has a diagnosis of osteomyelitis and diskitis, and he sees Dr. Farrukh Garrison for treatment. During his ER presentation, he was found to be bradycardic with his heart rate in the 30s and low 40s. The patient's blood pressure was normotensive and stable. He denied any shortness of breath, chest pain, presyncope, lightheadedness, or dizziness. He does admit to mild fatigue lately, but he also admits the feeling slightly depressed. The patient denies any other symptoms. While in the ER, the patient was given 0.5 mg of atropine and he was admitted. Cardiac workup revealed unremarkable electrolytes as well as cardiac enzymes. Cardiac history revealed that the patient had an echo in 11/2015 which revealed no abnormality. He also had a stress test in 01/2016 which had no abnormalities. The patient's cardiac history also was pertinent for mild chest tightness and palpitations which occurs only when he feels anxious. Cardiac history is negative for shortness of breath, legs or ankle swelling, fainting, dizziness, lightheadedness, history of heart murmur, pericarditis, or rheumatic fever. He also denies symptoms of claudications, sores in legs and feet, prior surgeries on arteries, aneurysms, or blood clots in lungs or legs. His cardiovascular risk factor survey reveals a 20 year smoking history which is still current, and he smokes about half-a-pack per day. He denies history of high blood pressure. He does have a personal history of high cholesterol as well as a type 2 diabetic diagnosis in 1998. PAST MEDICAL HISTORY: Significant Illnesses: Hypothyroidism, type 2 diabetes, dyslipidemia, chronic low back pain, and sinus bradycardia. SCHEDULED MEDICATIONS: 1. Neurontin 600 mg tab p.o. at bedtime. 2. Zocor 40 mg tab p.o. at bedtime. 3. NovoLog low dose sliding scale subcu. 4. Normal saline 105 mL IV every 4 hours. 5. Oxacillin 2 g. FAMILY HISTORY: No family history of heart disease. The patient has a positive family history for diabetes in his mom, dad, and maternal grand mother. No family history of cancer. SOCIAL HISTORY: The patient does not follow a special diet. He does not use alcohol. He does report use of caffeine in 3 to 4 cups of coffee daily and 3 to 4 non-diet pops daily as well. He denies a history of drug abuse or use. The patient has been unemployed since chronic low back pain. His marital status is and going through divorce. ADMIT: 12/01/2016 RM/LOC: [facility] MR#: [id number] [address] [place] [id number] [place] [address] Consultation SEX: M AGE: 46 : 1970 REVIEW OF SYSTEMS: GENERAL: The patient does report tiring easily that he has noticed for the past couple of years. He denies history of fever, chills, sweats or significant weight loss or weight gain. EYES: The patient denies history of blurry vision, glaucoma, partial or total loss of vision, or cataracts. THROAT, MOUTH AND EARS: The patient denies history of problems with nose, sinus, throat, hearing, or ears. RESPIRATORY: The patient denies history of asthma, wheezing, emphysema, bronchitis, chronic cough, or bloody sputum. The patient does report history of snoring loudly, waking up in the middle of the night as well as being tired in the a.m. He has not had a sleep study done in the past. GASTROINTESTINAL: The patient does report history of heartburn. He denies difficulty swallowing, history of hernias, stomach ulcers, rectal bleeding, gallbladder problems, or liver disease. GENITOURINARY TRACT: The patient denies history of blood in urine, problems with urination, urinary infections, kidney or bladder stones, or kidney failure. MUSCULOSKELETAL: The patient denies history of arthritis or gout. He does report a history of low back pain. ENDOCRINE: The patient does have history of hypothyroidism. HEMATOLOGY AND LYMPHATIC: The patient denies history anemia, bleeding problems, or cancer. NEUROLOGIC: The patient denies history of chronic headaches, stroke, seizure disorder, numbness or tingling. PSYCHIATRIC: The patient denies history of being diagnosed with mental illness. He does fell mildly depressed. PHYSICAL EXAMINATION: GENERAL: Alert and oriented x3, in no acute distress. NECK: Absent JVD. HEART: Regular rate and rhythm. LUNGS: Clear to auscultation. ABDOMEN: Positive bowel sounds. EXTREMITIES: No lower extremity edema. LABORATORY DATA: Sodium 146, potassium 3.3, chloride 112, CO2 is 25, BUN 11, creatinine 0.8, glucose 105. White blood cell count 6.2, hemoglobin 11.8. CK- MB was negative at 0.8. Troponin negative at less than 0.015. TSH normal. ADMIT: 12/01/2016 RM/LOC: [facility] MR#: [id number] [address] [address] [facility] [address] [address] Consultation SEX: M AGE: 46 : 1970 ASSESSMENT: 1. Sinus bradycardia. 2. Diskitis. 3. Chronic back pain. He has sinus bradycardia, it is not appeared to be symptomatic. The patient does note some mild fatigue. We will watch him on telemetry both here and at home. If evidence of heart block, pauses, or symptomatic bradycardia, we will do a pacemaker. His decrease in heart rate may be due to back pain and pain medications. PLAN: Perform echocardiogram today. Indication: Bradycardia. CARLITA Hurley Student / Sarthak Amin MD / caleb JOB #: [id number] CC: Chiquis Dugan, Attending Physician Chiquis Dugan, Family Physician
== END 2016-12-03 15:07 | disposition home health service (06) | DRG 309 ==
LOC: ER 14:34 → 4PCU 16:20
PROVIDERS: ADMIT Family Medicine
DX: R00.1 Bradycardia, unspecified (principal); M46.24 Osteomyelitis of vertebra, thoracic region; M60.08 Infective myositis, other site; E11.65 Type 2 diabetes mellitus with hyperglycemia; F11.20 Opioid dependence, uncomplicated; M46.44 Discitis, unspecified, thoracic region; B95.7 Other staphylococcus as the cause of diseases classified elsewhere; F17.210 Nicotine dependence, cigarettes, uncomplicated; E87.6 Hypokalemia; E03.9 Hypothyroidism, unspecified; E78.5 Hyperlipidemia, unspecified; Z79.84 Long term (current) use of oral hypoglycemic drugs; Z91.19 Patient's noncompliance with other medical treatment and regimen

== ENCOUNTER 2016-12-09 11:54 | Emergency (ER) | payer SELFPAY ==
[~2016-12-09 11:54] MED LIST changes: +FENOFIBRATE160 MG PO; +MICRONASE DPS5 MG PO; +OXACILLIN SODIUM2 GM IV; +OXYCONTIN15 MG PO; +SYNTHROID DPS0.1 MG PO
--- NOTE | 2016-12-12 12:41 | ER ---
ADMIT: 12/09/2016 RM/LOC: ER [facility] MR#: [id number] [address] [facility] [address] CANDY TORREZ [address] [place] [address] Emergency Room Report SEX: M AGE: 46 : 1970 DATE: 12/09/2016 SUBJECTIVE: A 46-year-old white male coming in with a question of PICC line placement. Sent over by home health nurse. The chest x-ray reveals a PICC line in place. Follow up as needed. CONDITION ON DISCHARGE: Good. Dudley Redmond MD/ caleb JOB #: [id number] CC: Dudley Redmond MD, Attending Physician UNKNOWN, Family Physician
== END 2016-12-09 14:15 | disposition home or self-care (01) ==
LOC: ER 11:54
DX: Z45.2 Encounter for adjustment and management of vascular access device (principal)

== ENCOUNTER 2016-12-14 15:53 | Emergency (ER) | payer SELFPAY ==
--- NOTE | 2016-12-15 15:51 | ER ---
ADMIT: 12/14/2016 RM/LOC: ER [facility] MR#: [id number] [address] [address] CANDY TORREZ [address] [place] [address] Emergency Room Report SEX: M AGE: 46 : 1970 DATE: 12/14/2016 This 46-year-old, comes to the Emergency Room with complaints of back pain. States he fell off the porch which exacerbated his chronic back pain. See T- sheet for remainder of history and physical. Of note, there were no signs of contusions or abrasions. No signs of injury could be found. He described the pain as 10/10. He has been here numerous times with complaints of pain. His behavior is highly suspicious for narcotic-seeking behavior. He claims he has no primary physician, however, he has recently been discharged from the hospital after a bout of bradycardia under the care Dr. Dugan. He states he was not given any doctor when he was discharged. DIAGNOSIS: Exacerbation of chronic back pain, very suspicious of narcotic- seeking behavior. I have given him Dr. Woods's name and instructed him to follow up with Dr. Woods on Friday to establish primary care. Femi Wang MD/ caleb JOB #: [id number] CC: Dudley Redmond MD, Attending Physician
== END 2016-12-14 17:28 | disposition home or self-care (01) ==
LOC: ER 15:53
DX: M54.9 Dorsalgia, unspecified (principal); G89.29 Other chronic pain; E11.9 Type 2 diabetes mellitus without complications; E03.9 Hypothyroidism, unspecified; Z79.899 Other long term (current) drug therapy

== ENCOUNTER 2016-12-24 16:27 | Emergency (ER) | payer SELFPAY ==
--- NOTE | 2016-12-29 14:44 | ER ---
ADMIT: 12/24/2016 RM/LOC: ER [facility] [place] MR#: [id number] [address] [place], [place] [address] CANDY TORREZ [address] [place] [address] Emergency Room Report SEX: M AGE: 46 : 1970 DATE: 12/24/2016 ADDENDUM: CHIEF COMPLAINT: Low back pain. HISTORY OF PRESENT ILLNESS: This is a 46-year-old who said he caught himself on the screen door and jaleesa himself onto his right leg. He now has lower back pain that goes down his left buttocks. COURSE IN THE EMERGENCY ROOM: I did speak with Dr. Reyes regarding this patient for pain management. According to the patient, at this time, he does oxycodone t.i.d. We did speak with Dr. Reyes, for the time being he can do every 6 hours for the next couple days. I am giving him oxycodone 20 mg, dispensing two tablets, just so he does not run short on his oxycodone. Also given him Toradol 15 mg IM here in the emergency room. CLINICAL IMPRESSION: Chronic low back pain. CARLITA Gomez / Dudley Redmond MD / adenl JOB #: [id number] CC: Dudley Redmond MD, Attending Physician Tad Reyes MD, Family Physician
== END 2016-12-24 17:28 | disposition home or self-care (01) ==
LOC: ER 16:27
DX: G89.29 Other chronic pain (principal); M54.5 Low back pain; F17.210 Nicotine dependence, cigarettes, uncomplicated; E03.9 Hypothyroidism, unspecified; E11.9 Type 2 diabetes mellitus without complications; Z98.890 Other specified postprocedural states; Z87.81 Personal history of (healed) traumatic fracture; Z79.84 Long term (current) use of oral hypoglycemic drugs; Z79.899 Other long term (current) drug therapy